=== PATIENT | female | born 1990 | race African-American/Black ===

== ENCOUNTER → 2016-10-08 | Outpatient (CLI) | payer OTHER ==
[2015-07-17 17:00] VITALS: BP 118/74
[~2016-10-08] MED LIST: IBUP-1007 PO; OXYC-323 PO; PNV1TABL25 PO
--- NOTE | 2016-10-08 15:32 | RAD ---
Obstetrical ultrasound, 10/08/2016: History: Check size and dates, date discrepancy, high-risk Transabdominal scans were obtained. There is a single intrauterine fetus in a variable orientation. The biparietal diameter measures 2.9 cm compatible with a gestational age of 15 weeks. This corresponds well with the other measurements and yields an average gestational age of 14 weeks and 6 days. This suggests an EDC of 04/02/2017. Normal activity and heart motion were seen. The heart rate was 169 bpm. The survey is limited at this early age, however, no specific abnormality is detected. A normal amount of amniotic fluid is present. On the initial images the distended urinary bladder was compressing the lower uterine segment, elongating the apparent length of the cervix. There is placental tissue both anteriorly and posteriorly on these images with the anterior tissue extending near the level of the cervix. Follow-up scanning is suggested to better define the cervix and inferior margin of the placenta. The maternal ovaries were not visualized. IMPRESSION: 1. Single viable intrauterine fetus of 14 weeks and 6 days gestational age. 2. Suboptimal delineation of the cervix and inferior placental margin as described above. Sonographic follow-up is suggested for better delineation of the cervical region and an optimal survey.
== END | disposition home or self-care (01) ==
LOC: US 14:14
PROVIDERS: ATTEND Obstetrics & Gynecology
DX: O09.91 Supervision of high risk pregnancy, unspecified, first trimester (principal); O26.841 Uterine size-date discrepancy, first trimester; Z3A.14 14 weeks gestation of pregnancy
CPT/HCPCS: 76805

== ENCOUNTER 2017-01-08 15:17 | Observation (INO) | payer OTHER ==
[2015-07-17 17:00] VITALS: BP 118/74
[2017-01-08] MEDS ORDERED: ACETAMINOPHEN 325 MG TABLET. PO PRN (16:45)
== END 2017-01-08 17:00 | disposition home or self-care (01) ==
LOC: 3 SO LND 15:17
PROVIDERS: ADMIT Obstetrics & Gynecology; ATTEND Obstetrics & Gynecology
DX: O26.892 Other specified pregnancy related conditions, second trimester (principal); M54.9 Dorsalgia, unspecified; Z3A.00 Weeks of gestation of pregnancy not specified
CPT/HCPCS: G0378; G0379

== ENCOUNTER 2017-08-26 14:13 | Emergency (ER) | payer OTHER ==
[2017-08-26 14:44] LABS: URINE HCG POC HCG POSITIVE (Negative)
[2017-08-26 15:03] LABS: BILIRUBIN,URINE NEGATIVE (NEG); CLARITY,URINE CLEAR; COLOR,URINE YELLOW; GLUCOSE,URINE NEGATIVE (NEG); NITRITE,URINE NEGATIVE (NEG); PROTEIN,URINE NEGATIVE (NEG-TRACE)
[2017-08-26 15:16] LABS: NEG OBC UR NEG; POS OBC UR POS; U PREG PATIENT POSITIVE (NEG)
[2017-08-26 15:26] LABS: BACTERIA,URINE FEW /HPF (0-FEW); RBC,URINE 0 /HPF (0-2); SQUAMOUS EPITHELIAL CELL,UR OCC /LPF; WBC,URINE OCC /HPF (0-4)
[2017-08-26] MEDS: METOCLOPRAMIDE HCL 10 MG/2 ML VIAL. IV (15:42)
[2017-08-26] MEDS: IV NORMAL SALINE 1000ML BAG 1,000 ML IV (15:43)
[2017-08-26 15:50] LABS: ADD MAN DIFF? NO
[2017-08-26 15:53] LABS: BASO # 0.1 x10^3/uL (0.0-0.2); BASO % 1 % (0-3); EOS % 0 % (0-3); HEMATOCRIT 39.2 % (36.0-47.0); HEMOGLOBIN 13.2 g/dL (12.0-15.5); LYMPH # 1.2 x10^3/uL (1.0-4.8); LYMPH % 11 % (24-48); MEAN CORPUSCULAR HEMOGLOBIN 29 pg (25-35); MEAN CORPUSCULAR HGB CONC 34 g/dL (31-37); MEAN CORPUSCULAR VOLUME 86 fL (79-100); MONO # 0.5 x10^3/uL (0.0-1.1); MONO % 4 % (0-9); NEUT # 9.1 x10^3uL (1.8-7.7); NEUT % 84 % (31-73); PLATELET COUNT 213 x10^3/uL (140-400); RED BLOOD COUNT 4.55 x10^6/uL (3.50-5.40); RED CELL DISTRIBUTION WIDTH 13.4 % (11.5-14.5); WHITE BLOOD COUNT 10.9 x10^3/uL (4.0-11.0)
[2017-08-26 16:05] LABS: ANION GAP 12 (6-14); BLOOD UREA NITROGEN 11 mg/dL (7-20); BUN/CREATININE RATIO 18 (6-20); CALCIUM 8.9 mg/dL (8.5-10.1); CARBON DIOXIDE 26 mmol/L (21-32); CHLORIDE 101 mmol/L (98-107); CREATININE 0.6 mg/dL (0.6-1.0); GFR 148.6; GLUCOSE 87 mg/dL (70-99); SODIUM 139 mmol/L (136-145)
[2017-08-26 16:11] LABS: ALK PHOS 80 U/L (46-116); ALT (SGPT) 25 U/L (14-59); AST (SGOT) 21 U/L (15-37); TOTAL BILIRUBIN 0.6 mg/dL (0.2-1.0)
== END 2017-08-26 18:03 | disposition home or self-care (01) ==
LOC: ER 14:13
DX: O26.891 Other specified pregnancy related conditions, first trimester (principal); R10.32 Left lower quadrant pain; O21.9 Vomiting of pregnancy, unspecified; R11.0 Nausea; Z3A.01 Less than 8 weeks gestation of pregnancy; Z90.49 Acquired absence of other specified parts of digestive tract
CPT/HCPCS: 36415; 76801; 80053; 81001; 81025; 84702; 85025; 96361; 96374; 99285-25; J2765; J7030

== ENCOUNTER 2017-09-10 13:46 | Emergency (ER) | payer OTHER ==
[2017-09-10] MEDS: IV NORMAL SALINE 1000ML BAG 1,000 ML IV (14:39)
[2017-09-10] MEDS: ONDANSETRON PF 4 MG/2 ML VIAL. IV (14:41)
[2017-09-10] MEDS: diphenhydrAMINE 50 MG/ML VIAL IVP (14:42)
[2017-09-10] MEDS: DEXAMETHASONE SOD PHOS 20 MG/5 ML VIAL. IV (14:43)
== END 2017-09-10 15:34 | disposition home or self-care (01) ==
LOC: ER 15:34
DX: O99.351 Diseases of the nervous system complicating pregnancy, first trimester (principal); G43.909 Migraine, unspecified, not intractable, without status migrainosus; Z90.49 Acquired absence of other specified parts of digestive tract; Z3A.08 8 weeks gestation of pregnancy
CPT/HCPCS: 96374; 96375; 99284-25; J1100; J1200; J2405; J7030

== ENCOUNTER → 2017-11-25 | Outpatient (CLI) | payer OTHER ==
[2017-09-10 15:32] VITALS: BP 117/68
[~2017-11-25] MED LIST changes: +PROM25TA10 PO
--- NOTE | 2017-11-25 13:37 | KCIC ---
Obstetrical ultrasound, 11/25/2017: HISTORY: Uterine size and date discrepancy There is a single intrauterine fetus in a variable orientation. The biparietal diameter measures 4.6 cm compatible with a gestational age of 19-20 weeks. This corresponds well to the other measurements and yields a sonographic EDC of 04/16/2018. This correlates well with the EDC of 04/17/2018 established on the previous ultrasound exam of 08/26/2017. Normal activity and heart motion are seen. There is a four-chamber heart with a heart rate of 145 bpm. A three-vessel umbilical cord is identified with a normal cord insertion site. Fluid is identified in the bladder and stomach. The visualized portions of the kidneys and spine are unremarkable. A normal amount of amniotic fluid is present. The placenta is located posteriorly with no evidence of placenta previa. The cervical length is approximately 4 cm. The maternal ovaries were not visualized. IMPRESSION: Single viable intrauterine fetus of 19-20 weeks gestational age with normal interval growth since 08/26/2017. Electronically signed by: Christ Alvarez MD (11/25/2017 1:34 PM) [facility]
== END | disposition home or self-care (01) ==
LOC: KCIC US 07:27
PROVIDERS: ATTEND Obstetrics & Gynecology
DX: O26.842 Uterine size-date discrepancy, second trimester (principal); Z3A.18 18 weeks gestation of pregnancy
CPT/HCPCS: 76805

== ENCOUNTER 2018-01-25 15:43 | Observation (INO) | payer OTHER ==
[2018-01-25 16:16] LABS: BILIRUBIN,URINE NEGATIVE (NEG); CLARITY,URINE CLEAR; COLOR,URINE YELLOW; NITRITE,URINE NEGATIVE (NEG); PH,URINE 6.5; PROTEIN,URINE NEGATIVE (NEG-TRACE)
[2018-01-25 16:23] LABS: BACTERIA,URINE FEW /HPF (0-FEW); RBC,URINE 0 /HPF (0-2); SQUAMOUS EPITHELIAL CELL,UR FEW /LPF; WBC,URINE OCC /HPF (0-4)
[2018-01-25 16:43] LABS: AMNIO PT NEGATIVE
[2018-01-25] MEDS ORDERED: IV RINGERS,LACTATED 1000ML 1,000 ML IV SCH (17:02)
[2018-01-25 17:13] VITALS: BP 122/68
[2018-01-25] MEDS ORDERED: TERBUTALINE 1 MG/ML VIAL. SQ ONE (17:15)
== END 2018-01-25 18:51 | disposition home or self-care (01) ==
LOC: 3 SO LND 15:43
PROVIDERS: ADMIT Obstetrics & Gynecology; ATTEND Obstetrics & Gynecology
DX: O42.913 Preterm premature rupture of membranes, unspecified as to length of time between rupture and onset of labor, third trimester (principal); O62.9 Abnormality of forces of labor, unspecified; O26.893 Other specified pregnancy related conditions, third trimester; N89.8 Other specified noninflammatory disorders of vagina; Z3A.28 28 weeks gestation of pregnancy
CPT/HCPCS: 36415; 81001; 84112; 96372; G0378; G0379; J3105; J7120

== ENCOUNTER 2018-02-06 10:39 | Observation (INO) | payer OTHER ==
[~2018-02-06] VITALS: Ht 154.9 cm; Wt 75.3 kg
[2018-02-06] MEDS ORDERED: IV RINGERS,LACTATED 1000ML 1,000 ML IV PRN (11:30)
[2018-02-06 11:43] LABS: BILIRUBIN,URINE NEGATIVE (NEG); CLARITY,URINE CLEAR; COLOR,URINE YELLOW; NITRITE,URINE NEGATIVE (NEG); PROTEIN,URINE NEGATIVE (NEG-TRACE)
[2018-02-06 12:13] LABS: BACTERIA,URINE 0 /HPF (0-FEW); RBC,URINE 0 /HPF (0-2); SQUAMOUS EPITHELIAL CELL,UR FEW /LPF; WBC,URINE 0 /HPF (0-4)
[2018-02-06] MEDS ORDERED: ACETAMINOPHEN 500 MG TABLET PO ONE (13:30)
== END 2018-02-06 14:51 | disposition home or self-care (01) ==
LOC: 3 SO LND 10:39
PROVIDERS: ADMIT Obstetrics & Gynecology; ATTEND Obstetrics & Gynecology
DX: O62.9 Abnormality of forces of labor, unspecified (principal); Z3A.30 30 weeks gestation of pregnancy
CPT/HCPCS: 81001; G0378; G0379

== ENCOUNTER 2018-04-05 16:54 | Observation (INO) | payer MEDICAID, OTHER ==
[~2018-04-05 16:54] MED LIST changes: -OXYC-323 PO; +OXYC1TAB15 PO
[2018-04-05] MEDS ORDERED: IV RINGERS,LACTATED 1000ML 1,000 ML IV PRN (17:15)
[2018-04-05 17:17] LABS: BILIRUBIN,URINE NEGATIVE (NEG); CLARITY,URINE CLEAR; COLOR,URINE YELLOW; NITRITE,URINE NEGATIVE (NEG); PH,URINE 6.5; PROTEIN,URINE NEGATIVE (NEG-TRACE)
[2018-04-05 17:28] LABS: BACTERIA,URINE MODERATE /HPF (0-FEW); SQUAMOUS EPITHELIAL CELL,UR MANY /LPF
[2018-04-05 17:29] LABS: RBC,URINE 0 /HPF (0-2)
== END 2018-04-05 19:12 | disposition home or self-care (01) ==
LOC: 3 SO LND 16:54
PROVIDERS: ADMIT Obstetrics & Gynecology; ATTEND Obstetrics & Gynecology
DX: O26.853 Spotting complicating pregnancy, third trimester (principal); Z3A.38 38 weeks gestation of pregnancy
CPT/HCPCS: 81001; 87086; G0378; G0379

== ENCOUNTER 2018-04-12 11:11 | Inpatient (IN) | payer OTHER ==
[~2018-04-12] VITALS: Ht 154.9 cm; Wt 76.2 kg
[2018-04-12] MEDS ORDERED: ONDANSETRON PF 4 MG/2 ML VIAL. IV PRN ×2 (12:00→13:30)
[2018-04-12] MEDS ORDERED: OXYTOCIN 30 UNIT/500 ML PREMIX 500 ML IV PRN ×3 (12:00→16:30)
[2018-04-12] MEDS ORDERED: fentaNYL PF VIAL 100 MCG/2 ML VIAL IV PRN (12:00)
[2018-04-12] MEDS ORDERED: LIDOCAINE 1% PF 30 ML VIAL. INJ PRN (12:00)
[2018-04-12] MEDS ORDERED: PENICILLIN G K 5,000,000 UNIT in IV DEXTROSE 5% 100ML 100 ML IV ONE (12:00)
[2018-04-12] MEDS ORDERED: IV RINGERS,LACTATED 1000ML 1,000 ML IV PRN (12:00)
[2018-04-12] MEDS ORDERED: IBUPROFEN 400 MG TABLET. PO PRN (12:00)
[2018-04-12] MEDS ORDERED: 0.9 % SODIUM CHLORIDE 10 ML DISP.SYRIN. IV PRN ×2 (12:00→16:30)
[2018-04-12 12:10] VITALS: BP 104/67
--- NOTE | 2018-04-12 12:16 | PDOC1 ---
OB - History Hx of Present Care: Good Care Ultrasounds: Normal mid trimester US Obstetrical Complications: None Medical Complications: None Past Family/Social History * Past Medical, Surgical, Family and Obstetric Histories reviewed from chart. Rubella: Immune RPR/VDRL: Negative GBS Status: Negative HBsAG: Negative OB - Chief Complaint & HPI Date of Admission: Date of Admission: Apr 12, 2018 at 11:11 Chief Complaint/History : 8 Para: 4 EGA: 38 Reason for admission: active labor Admission Nurse Assessment Rev: Yes OB - Admission Exam Physical Exam Vitals: VS - Last 72 Hours, by Label Date Time Temp Pulse Resp B/P (MAP) Pulse Ox O2 Delivery O2 Flow Rate FiO2 04/12/18 12:10 98.5 122 20 104/67 (79) 98.5 HEENT: Normal Heart: Regular Rate Lungs: Clear Abdomen: Gravid, Non tender, Soft Extremities: Edema Reflexes: Normal Cervical Dilatation: 4cm Effacement: 75% Station: -2 Membranes: Intact Amniotic Fluid: Clear Heart Rate: Normal Accelerations: Accelerations Present Decelerations: No decelerations Contractions on Admission: < 5 Minutes Apart Intensity: Moderate Text A: 38 wks IUP Active labor P: Admit for labor management. IRMA HERMOSILLO Jr, MD Apr 12, 2018 12:16
[2018-04-12 12:38] LABS: BASO % 0 % (0-3); EOS % 0 % (0-3); HEMATOCRIT 37.4 % (36.0-47.0); HEMOGLOBIN 12.4 g/dL (12.0-15.5); LYMPH # 1.5 x10^3/uL (1.0-4.8); LYMPH % 17 % (24-48); MEAN CORPUSCULAR HEMOGLOBIN 29 pg (25-35); MEAN CORPUSCULAR HGB CONC 33 g/dL (31-37); MEAN CORPUSCULAR VOLUME 86 fL (79-100); MONO # 0.5 x10^3/uL (0.0-1.1); MONO % 5 % (0-9); NEUT # 6.7 x10^3uL (1.8-7.7); NEUT % 77 % (31-73); PLATELET COUNT 169 x10^3/uL (140-400); RED BLOOD COUNT 4.37 x10^6/uL (3.50-5.40); RED CELL DISTRIBUTION WIDTH 15.5 % (11.5-14.5); WHITE BLOOD COUNT 8.7 x10^3/uL (4.0-11.0)
[2018-04-12] MEDS ORDERED: PROCHLORPERAZINE 10 MG/2 ML VIAL. IV PRN (13:30)
[2018-04-12] MEDS ORDERED: L&D EPIDURAL SYRINGE 50 ML EPID PRN (13:30)
[2018-04-12] MEDS ORDERED: BUPIVACAINE MPF 0.25% 30 ML VIAL. EPID PRN (13:30)
[2018-04-12] MEDS ORDERED: NALOXONE 0.4 MG/ML VIAL. IV PRN (13:30)
[2018-04-12] MEDS ORDERED: ATROPINE 0.5 MG/5 ML DISP.SYRINGE. IV PRN (13:30)
[2018-04-12] MEDS ORDERED: NALBUPHINE 10 MG/ML AMPUL. IV PRN (13:30)
[2018-04-12] MEDS ORDERED: ROPIVacaine 0.2% IN 0.9%NACL PF 40 MG/20 ML DISP.SYRIN. EPID PRN (13:30)
[2018-04-12] MEDS ORDERED: IV RINGERS,LACTATED 1000ML 1,000 ML IV SCH (13:30)
[2018-04-12] MEDS ORDERED: diphenhydrAMINE 50 MG/ML VIAL IV PRN (13:30)
[2018-04-12] MEDS ORDERED: fentaNYL PF VIAL 100 MCG/2 ML VIAL EPI PRN (13:30)
[2018-04-12] MEDS ORDERED: ePHEDrine PF IN SALINE 50 MG/5 ML DISP.SYRIN IV PRN (13:30)
[2018-04-12] MEDS ORDERED: PHENYLEPHRINE in 0.9% NACL PF 1 MG/10 ML SYRINGE. IV PRN (13:30)
[2018-04-12] MEDS ORDERED: IV RINGERS,LACTATED 500ML 500 ML IV PRN (13:30)
[2018-04-12] MEDS ORDERED: PENICILLIN G K 2,500,000 UNIT in IV DEXTROSE 5% 50 ML IV SCH (16:00)
--- NOTE | 2018-04-12 16:29 | PDOC ---
VAGINAL DELIVERY DATE DATE: 04/12/18 TIME: 16:27 : Other (8) Para: 5 EGA: 38 VAGINAL DELIVERY: VTX VACCUM ASSISTED: No PLACENTA: Spontaneous 12/25 SEX: Female WEIGHT Weight [ 3335 gm] Nuchal Cord: No Amniotic Fluid: Clear PAIN: Epidural EPISIOTOMY: No EXTENSION: No EBL 300 ml COMPLICATIONS none CONDITION pt. stable Signs of Intrauterine Infectio: None Shoulder Dystocia: No IRMA HERMOSILLO Jr, MD Apr 12, 2018 16:29
[2018-04-12] MEDS ORDERED: BENZOCAINE 20% TOPICAL AEROSOL SPRAY 57GM CAN. TP PRN (16:30)
[2018-04-12] MEDS ORDERED: MAG HYDROX/ALUMINUM HYD/SIMETH 30 ML ORAL.SUSP PO PRN (16:30)
[2018-04-12] MEDS ORDERED: HYDROCORTISONE 1% TOPICAL OINTMENT 30GM TUBE. TP PRN (16:30)
[2018-04-12] MEDS ORDERED: ACETAMINOPHEN 325 MG TABLET. PO PRN (16:30)
[2018-04-12] MEDS ORDERED: PHENYLEPH/MINERAL OIL/PETROLAT RECTAL OINTMENT 28GM TUBE. RC PRN (16:30)
[2018-04-12] MEDS ORDERED: diphenhydrAMINE HCL 25 MG CAPSULE PO PRN (16:30)
[2018-04-12] MEDS ORDERED: ZOLPIDEM 5 MG TABLET. PO PRN (16:30)
[2018-04-12] MEDS ORDERED: MMR per PROTOCOL. MC PRN (16:30)
[2018-04-12] MEDS ORDERED: MAGNESIUM HYDROXIDE 2,400 MG/30 ML ORAL.SUSP. PO PRN (16:30)
[2018-04-12] MEDS ORDERED: SIMETHICONE 80 MG TAB.CHEW PO PRN (16:30)
[2018-04-12] MEDS: IBUPROFEN 400 MG TABLET. PO PRN (19:52)
[2018-04-12 20:26] VITALS: BP 99/56
[2018-04-12] MEDS ORDERED: SODIUM CHLORIDE 0.9% FOR NSY DROPS 3ML SOLUTION. ONE (21:43)
[2018-04-12] MEDS: oxyCODONE/APAP 5/325 1 TAB TABLET PO PRN (21:50)
[2018-04-12 23:03] VITALS: BP 93/90
[2018-04-13] VITALS (13 sets, daily range): BP systolic 97–132; BP diastolic 59–86
[2018-04-13] MEDS: oxyCODONE/APAP 5/325 1 TAB TABLET PO PRN ×4 (06:11→23:56)
[2018-04-13 06:42] LABS: BASO % 0 % (0-3); EOS # 0.1 x10^3/uL (0.0-0.7); EOS % 1 % (0-3); HEMATOCRIT 34.9 % (36.0-47.0); HEMOGLOBIN 11.7 g/dL (12.0-15.5); LYMPH # 1.8 x10^3/uL (1.0-4.8); LYMPH % 20 % (24-48); MEAN CORPUSCULAR HEMOGLOBIN 29 pg (25-35); MEAN CORPUSCULAR HGB CONC 34 g/dL (31-37); MEAN CORPUSCULAR VOLUME 85 fL (79-100); MONO # 0.6 x10^3/uL (0.0-1.1); MONO % 7 % (0-9); NEUT # 6.6 x10^3uL (1.8-7.7); NEUT % 73 % (31-73); PLATELET COUNT 161 x10^3/uL (140-400); RED CELL DISTRIBUTION WIDTH 15.6 % (11.5-14.5); WHITE BLOOD COUNT 9.1 x10^3/uL (4.0-11.0)
[2018-04-13] MEDS ORDERED: HYDROmorphone 2 MG/ML VIAL IV PRN (07:00)
[2018-04-13] MEDS ORDERED: PROCHLORPERAZINE 10 MG/2 ML VIAL. IV PRN (07:00)
[2018-04-13] MEDS ORDERED: IV RINGERS,LACTATED 1000ML 1,000 ML IV SCH (07:00)
[2018-04-13] MEDS ORDERED: MORPHINE SULFATE 2 MG/ML VIAL. IV PRN (07:00)
[2018-04-13] MEDS ORDERED: ONDANSETRON PF 4 MG/2 ML VIAL. IV PRN (07:00)
[2018-04-13] MEDS ORDERED: LIDOCAINE 1% PF 2 ML VIAL. ID PRN (07:00)
[2018-04-13] MEDS ORDERED: fentaNYL PF VIAL 100 MCG/2 ML VIAL IV PRN (07:00)
[2018-04-13] MEDS ORDERED: LIDOCAINE 1%/EPI 1:100,000 20 ML VIAL. ONE (07:05)
[2018-04-13] MEDS ORDERED: FERROUS SULFATE 325 MG TABLET. PO SCH (08:00)
[2018-04-13] MEDS ORDERED: FAMOTIDINE 20 MG/2 ML VIAL ONE (08:38)
[2018-04-13] MEDS ORDERED: PROPOFOL 20 ML IV ONE (08:38)
[2018-04-13] MEDS ORDERED: ONDANSETRON PF 4 MG/2 ML VIAL. ONE (08:38)
[2018-04-13] MEDS ORDERED: LIDOCAINE 2% PF Vial for OR 5 ML VIAL. ONE (08:38)
[2018-04-13] MEDS ORDERED: DEXAMETHASONE SOD PHOS 20 MG/5 ML VIAL. ONE (08:38)
[2018-04-13] MEDS ORDERED: fentaNYL PF VIAL 100 MCG/2 ML VIAL ONE (08:39)
[2018-04-13] MEDS ORDERED: SUCCINYLCHOLINE 200 MG/10 ML VIAL. ONE (08:39)
[2018-04-13] MEDS ORDERED: DIPHTH,PERTUSS(ACELL),TET TOX 0.5 ML DISP.SYRIN. VAX IM ONE (09:00)
[2018-04-13] MEDS ORDERED: ROCURONIUM 50 MG/5 ML VIAL. ONE (09:09)
[2018-04-13] MEDS ORDERED: DESFLURANE 31 TO 60 MINUTES IH ONE (09:55)
--- NOTE | 2018-04-13 10:03 | PDOC ---
BRIEF OPERATIVE NOTE Date: Apr 13, 2018 Pre-Op Diagnosis Sterilization Post-Op Diagnosis Same Procedure Performed PP BTL Surgeon Dr. Ramos Anesthesia Type: General Blood Loss less than 5 ml Specimens Obtained none Findings post uterus at level of umbilicus, nml fallopian tubes néstor. Complications none Operative Note see dictation IRMA RAMOS Jr, MD Apr 13, 2018 10:03
[2018-04-13] MEDS: fentaNYL PF VIAL 100 MCG/2 ML VIAL IV PRN ×2 (10:18→11:01)
--- NOTE | 2018-04-13 10:21 | OP ---
DATE OF SURGERY: PREOPERATIVE DIAGNOSIS: Sterilization. POSTOPERATIVE DIAGNOSIS: Sterilization. PROCEDURE: BTL with Filshie clips. SURGEON: Clem Ramos MD ANESTHESIA: GETA. ESTIMATED BLOOD LOSS: Less than 5 mL. COMPLICATIONS: None. FINDINGS: uterus at the level of the umbilicus. Normal fallopian tubes bilaterally. SUMMARY: The patient is day #1, status post spontaneous vaginal delivery, desires permanent sterilization. She was counseled on risks, benefits and expectations and voiced a clear understanding to proceed. DESCRIPTION OF PROCEDURE: The patient was taken to surgery suite and placed in dorsal supine position. She was prepped with ChloraPrep and draped in sterile fashion. After adequate anesthesia, a skin incision was made just below the umbilicus about 3 cm transverse incision. Two Allis clamps were used to grasp 12 and 6 o'clock position of the fascia, which was entered sharply with curved Perez scissors. [place] retractors were utilized to retract the incision site. The right fallopian tube was identified, followed out to its fimbriated end with [place]. Filshie clip was applied to the isthmus region of the right fallopian tube. Same process took place with the left fallopian tube. The fascia was then reapproximated using 2-0 Vicryl suture in a running fashion. Skin was reapproximated using 4-0 Vicryl suture in subcuticular manner. A 1% lidocaine with epinephrine was injected in incision site. The patient tolerated the procedure well and was taken to recovery room in stable condition. Sponge and needle count correct x 3. CLEM RAMOS MD DR: DORIAN/marilia JOB#: [id number] / [id number]
[2018-04-13] MEDS: DOCUSATE SODIUM 100 MG CAPSULE. PO PRN ×2 (11:40→19:18)
[2018-04-13] MEDS: IBUPROFEN 400 MG TABLET. PO PRN (11:40)
[2018-04-14] MEDS: oxyCODONE/APAP 5/325 1 TAB TABLET PO PRN ×2 (05:53→12:12)
[2018-04-14 06:04] VITALS: BP 124/66
[2018-04-14] MEDS: IBUPROFEN 400 MG TABLET. PO PRN (07:58)
[2018-04-14] MEDS: DOCUSATE SODIUM 100 MG CAPSULE. PO PRN (07:58)
--- NOTE | 2018-04-14 14:42 | PDOC3 ---
OB DISCHARGE SUMMARY DATE OF ADMISSION: 04/12/18 DATE OF DISCHARGE: 04/14/18 REASON FOR ADMISSION: Onset of labor INTRAPARTUM PROCEDURES: Tubal Ligation, Spontanous Vag Deliv PROCEDURES: Tubal Ligation DISCHARGE DIAGNOSIS: Term Delivered DISCHARGE INFORMATION: Activity (ad capri), Diet (regular), Instructions (pelvic rest x 6 wks) HOSPITAL COURSE Term gestation delivered vaginally and completed post BTL without complications. IRMA HERMOSILLO Jr, MD Apr 14, 2018 14:42
--- NOTE | 2018-04-14 14:42 | DISCH ---
DISCHARGE INSTRUCTIONS Condition on Discharge Condition on Discharge: Stable Activity After Discharge Activity Instructions for Disc: Activity as tolerated Lifting Instructions after Dis: No heavy lifting Driving Instructions after Dis: Do not drive today Diet after Discharge Diet after Discharge: Regular Swallowing Supervision: None needed Contacting the [facility] after DC Call your doctor for: Concerns you may have Follow-Up Follow up with: Dr. Oakley in 2 wks. Treatment/Equipment after DC Adaptive Equipment Issued: None IRMA OAKLEY Jr, MD Apr 14, 2018 14:42
[2018-04-14] MEDS ORDERED: DOCU-109 PO (14:45)
[2018-04-14] MEDS ORDERED: OXYC1TAB15 PO (14:45)
[2018-04-14] MEDS ORDERED: IBUP-1027 PO (14:45)
[2018-04-14 15:20] VITALS: BP 106/69
== END 2018-04-14 16:18 | disposition home or self-care (01) | DRG 798 ==
LOC: 3 SO LND 11:11 → OBSVTOIN 11:11 → 3 NORTH 19:23
PROVIDERS: ADMIT Obstetrics & Gynecology; ATTEND Obstetrics & Gynecology
PROC: 10E0XZZ Delivery of Products of Conception, External Approach (ICD-10-PCS; principal; 2018-04-12)
PROC: 3E0R3BZ Introduction of Anesthetic Agent into Spinal Canal, Percutaneous Approach (ICD-10-PCS; 2018-04-12)
PROC: 00HU33Z Insertion of Infusion Device into Spinal Canal, Percutaneous Approach (ICD-10-PCS; 2018-04-12)
PROC: 0UL70CZ Occlusion of Bilateral Fallopian Tubes with Extraluminal Device, Open Approach (ICD-10-PCS; 2018-04-13)
DX: O80 Encounter for full-term uncomplicated delivery (principal); Z37.0 Single live birth; Z3A.38 38 weeks gestation of pregnancy; Z30.2 Encounter for sterilization
CPT/HCPCS: 36415; 85025; 86592; 86850; 86900; 86901; 90471; 90715; 90756; A4218; A7015; G0378; J0330; J0780; J1100; J2001; J2405; J2704; J3010; J3490; J7120; Q2035

== ENCOUNTER 2018-07-06 21:39 | Emergency (ER) | payer OTHER ==
[~2018-07-06] VITALS: Ht 154.9 cm; Wt 68.0 kg
[~2018-07-06 21:39] MED LIST changes: +DOCU-109 PO; +IBUP-1027 PO
[2018-07-06 22:39] VITALS: BP 111/67
--- NOTE | 2018-07-06 23:35 | PHYS DOC ---
Past Medical History Past Medical History: Migraines Additional Past Medical Histor: MOLAR ,TUBAL LIGATION Past Surgical History: Cholecystectomy, Tubal ligation Alcohol Use: None Drug Use: None Adult General Chief Complaint Chief Complaint: LOWER EXT PAIN HPI HPI Patient is a 27 year old female with no significant medical history who presents today complaining of chronic bilateral lower extremity pain specifically on bilateral shins. Patient denies any known injury. Denies anything specifically exacerbating or relieving the pain. 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 Patient denies being on any hormones, denies any recent hospitalization or surgeries, denies any long car or air travel, denies any shortness of breath, denies any hemoptysis. Denies any personal or family history of DVTs. Review of Systems Review of Systems Constitutional: Denies fever or chills [] Eyes: Denies change in visual acuity, redness, or eye pain [] HENT: Denies nasal congestion or sore throat [] Respiratory: Denies cough or shortness of breath [] Cardiovascular: No additional information not addressed in HPI [] GI: Denies abdominal pain, nausea, vomiting, bloody stools or diarrhea [] : Denies dysuria or hematuria [] Musculoskeletal: Reports chronic bilateral lower extremity pain Integument: Denies rash or skin lesions [] Neurologic: Denies headache, focal weakness or sensory changes [] All other systems were reviewed and found to be within normal limits, except as documented in this note. Allergies Allergies Allergies Coded Allergies Type Severity Reaction Last Updated Verified No Known Drug Allergies 10/05/14 No Physical Exam Physical Exam Constitutional: Well developed, well nourished, no acute distress, non-toxic appearance. [] HENT: Normocephalic, atraumatic, bilateral external ears normal, oropharynx moist, no oral exudates, nose normal. [] Eyes: PERRLA, EOMI, conjunctiva normal, no discharge. [] Neck: Normal range of motion, no tenderness, supple, no stridor. [] Cardiovascular:Heart rate regular rhythm, no murmur [] Lungs & Thorax: Bilateral breath sounds clear to auscultation [] Abdomen: Bowel sounds normal, soft, no tenderness, no masses, no pulsatile masses. [] Skin: Warm, dry, no erythema, no rash. [] Back: No tenderness, no CVA tenderness. [] Extremities: No tenderness, no cyanosis, no clubbing, ROM intact, no edema. Negative Homans sign bilaterally Neurologic: Alert and oriented X 3, normal motor function, normal sensory function, no focal deficits noted. [] Psychologic: Affect normal, judgement normal, mood normal. [] Current Patient Data Vital Signs Vital Signs Date Time Temp Pulse Resp B/P (MAP) Pulse Ox O2 Delivery O2 Flow Rate FiO2 07/06/18 22:39 97.7 85 14 111/67 (82) 95 Room Air 97.7 EKG EKG [] Radiology/Procedures Radiology/Procedures [] Course & Med Decision Making Course & Med Decision Making Pertinent Labs and Imaging studies reviewed. (See chart for details) This is a 27-year-old female patient presenting to the ED today with chronic bilateral lower extremity pain, no known injury. Negative Homans sign bilaterally. Perc score is 0. Patient is in no distress. She signed out AMA as soon as I told her I do not believe she has any acute cause for this pain. I had recommended she takes [id number] pain relievers, had recommended she tries to get up and started to exercise because she does nothing all day and part from taking care of her children. Dragon Disclaimer Dragon Disclaimer This electronic medical record was generated, in whole or in part, using a voice recognition dictation system. Departure Departure Impression: Primary Impression: Chronic pain of lower extremity, bilateral Disposition: 07 AGAINST MEDICAL ADVICE Condition: STABLE Referrals: NO PCP (PCP) PABLO SAL APRN Jul 06, 2018 23:35
== END 2018-07-06 23:30 | disposition left against medical advice (07) ==
LOC: ER 21:39
DX: G89.29 Other chronic pain (principal); M79.604 Pain in right leg; M79.605 Pain in left leg; G43.909 Migraine, unspecified, not intractable, without status migrainosus; Z98.51 Tubal ligation status; Z90.49 Acquired absence of other specified parts of digestive tract
CPT/HCPCS: 99281

== ENCOUNTER → 2018-12-29 | Outpatient (CLI) | payer OTHER ==
[2018-12-29 13:22] LABS: BASO % 1 % (0-3); EOS # 0.1 x10^3/uL (0.0-0.7); EOS % 2 % (0-3); HEMATOCRIT 39.9 % (36.0-47.0); LYMPH # 2.2 x10^3/uL (1.0-4.8); LYMPH % 39 % (24-48); MEAN CORPUSCULAR HEMOGLOBIN 29 pg (25-35); MEAN CORPUSCULAR HGB CONC 33 g/dL (31-37); MEAN CORPUSCULAR VOLUME 88 fL (79-100); MONO # 0.4 x10^3/uL (0.0-1.1); MONO % 7 % (0-9); NEUT # 2.9 x10^3/uL (1.8-7.7); NEUT % 51 % (31-73); PLATELET COUNT 219 x10^3/uL (140-400); RED BLOOD COUNT 4.51 x10^6/uL (3.50-5.40); RED CELL DISTRIBUTION WIDTH 12.9 % (11.5-14.5); WHITE BLOOD COUNT 5.7 x10^3/uL (4.0-11.0)
[2018-12-29 13:47] LABS: FREE T4 0.83 ng/dL (0.76-1.46); THYROID STIM HORMONE (TSH) 2.177 uIU/mL (0.358-3.74)
== END | disposition home or self-care (01) ==
LOC: LAB 13:03
PROVIDERS: ATTEND Obstetrics & Gynecology
DX: N94.6 Dysmenorrhea, unspecified (principal); N94.10 Unspecified dyspareunia; R10.2 Pelvic and perineal pain
CPT/HCPCS: 36415; 84146; 84439; 84443; 85025